=== PATIENT | female | born 1990 | race Caucasian/White ===

== ENCOUNTER 2016-09-03 15:18 | Observation (INO) | payer SELFPAY ==
[~2016-09-03] VITALS: Ht 162.6 cm; Wt 57.6 kg
[~2016-09-03 15:18] MED LIST: ASPIRIN 81M81 MG/TA2 PO; FIORICET 325 MG1 TA1 PO; FLONASE NASAL S16 GM NS; KEPPRA750 MG PO; PRIL40 PO; VALIUM 5MG T5 MG/TAB PO
[2016-09-03] MEDS ORDERED: KLONOPIN 0.5MG0.5 MG PO (15:36)
[2016-09-03] MEDS ORDERED: DAZIDOX10 MG PO (15:37)
[2016-09-03] MEDS ORDERED: SOMA 350MG350 MG/TAB PO (15:39)
[2016-09-03 15:42] LABS: BASO # 0.1 (0.0-0.2); BASO % 0.6 % (0.0-2.0); EOS # 0.2 (0.0-0.7); EOS % 2.3 % (0-4.0); GRAN # 5.1 (1.4-6.5); GRAN % 56.7 % (42.2-75.2); HEMATOCRIT 45.8 % (37.0-47.0); HEMOGLOBIN 15.7 g/dl (12.5-16.0); LYMPH # 3.3 (1.2-3.4); LYMPH % 36.7 % (20.0-51.0); MEAN CELL VOLUME 95 fl (80.0-100.0); MEAN CORPUSCULAR HEMOGLOBIN 33 pg (27.0-31.0); MEAN CORPUSCULAR HGB CONC 34 g/dl (33.0-37.0); MONO # 0.3 (0.1-0.6); MONO % 3.4 % (1.7-9.3); PLATELET COUNT 255 K/mm3 (130-400); REDCELL DISTRIBUTION WIDTH-CV 11.9 % (11.5-14.5)
[2016-09-03 16:27] LABS: ADJUSTED CALCIUM 9.1 mg/dL (8.4-10.2); ALBUMIN 4.2 gm/dL (3.5-5.0); BILIRUBIN,TOTAL 0.6 mg/dL (0.0-1.0); CALCIUM 9.3 mg/dL (8.4-10.2); CREATININE, serum 0.6 mg/dL (0.52-1.25); TOTAL PROTEIN 7.2 gm/dL (6.4-8.2)
[2016-09-03 19:42] VITALS: BP 99/73; PULSE 72
[2016-09-03] MEDS ORDERED: PRIL40 PO (20:01)
[2016-09-03 23:39] VITALS: BP 104/72; PULSE 74; TEMP 98.1
[2016-09-03 23:59] LABS: MAGNESIUM 1.9 mg/dL (1.6-2.3)
[2016-09-04 00:39] LABS: TROPONIN-I < 0.012 ng/mL (0.000-0.034)
[2016-09-04 03:35] VITALS: BP 94/60; PULSE 64; TEMP 97.9
[2016-09-04 07:03] LABS: PH 6 (5-8); URINE APPEARANCE Hazy; URINE BACTERIA Rare /hpf; URINE BILIRUBIN Negative (NEGATIVE); URINE BLOOD Negative (NEGATIVE); URINE COLOR Yellow; URINE GLUCOSE Negative (NEGATIVE); URINE KETONE Trace (NEGATIVE); URINE RBC 0-2 /hpf; URINE UROBILINOGEN Negative (NEGATIVE)
[2016-09-04 08:25] VITALS: BP 95/58; PULSE 70; TEMP 97.8
[2016-09-04 12:48] VITALS: BP 117/79; PULSE 86; TEMP 97.9
[2016-09-04 17:10] VITALS: BP 92/45; PULSE 76; TEMP 98.5
[2016-09-04 19:44] VITALS: BP 92/45; PULSE 80; TEMP 98
[2016-09-04 23:33] VITALS: BP 96/52; PULSE 63; TEMP 97.5
[2016-09-05 04:55] VITALS: BP 96/60; PULSE 64; TEMP 97
[2016-09-05 08:03] VITALS: BP 92/57; PULSE 69; TEMP 97.8
[2016-09-05 11:36] VITALS: BP 94/49; PULSE 69; TEMP 97.9
[2016-09-05 16:09] VITALS: BP 92/63; PULSE 71; TEMP 98.2
[2016-09-05 19:59] VITALS: BP 112/62; PULSE 70; TEMP 98.3
[2016-09-05 23:32] VITALS: BP 108/60; PULSE 61; TEMP 97.9
[2016-09-06 03:25] VITALS: BP 112/70; PULSE 59; TEMP 98.4
[2016-09-06 07:59] VITALS: BP 109/64; PULSE 84; TEMP 97.7
[2016-09-06 12:00] VITALS: BP 125/79; PULSE 76; TEMP 97.6
== END 2016-09-06 15:21 | disposition short-term general hospital (02) ==
LOC: COL.ER 15:18 → MEDICAL 17:54
PROVIDERS: Emergency Medicine; Nurse Practitioner Family
DX: R51 Headache (principal); F33.8 Other recurrent depressive disorders; G43.919 Migraine, unspecified, intractable, without status migrainosus; K31.84 Gastroparesis; Q21.1 Atrial septal defect; I35.0 Nonrheumatic aortic (valve) stenosis; K21.9 Gastro-esophageal reflux disease without esophagitis; R00.0 Tachycardia, unspecified; I69.398 Other sequelae of cerebral infarction; G40.909 Epilepsy, unspecified, not intractable, without status epilepticus; M62.81 Muscle weakness (generalized); F11.20 Opioid dependence, uncomplicated; F12.90 Cannabis use, unspecified, uncomplicated; F17.210 Nicotine dependence, cigarettes, uncomplicated
CPT/HCPCS: 90791-AI; 99233-AI; 99239; A9585; G0378; G8978-GP; G8979-GP; G8987-GO; G8988-GO; J0595; J1170; J1630; J1885; J2405; J3360; J7030; J7040